=== PATIENT | female | born 1990 | race Caucasian/White ===

== ENCOUNTER 2025-02-26 07:45 | Outpatient (RCR) | payer BC, SELFPAY | END 2025-06-20 08:15 | disposition home or self-care (01) | PROVIDERS: PCP Family Medicine; Visit Provider Family Medicine | DX: N81.11 Cystocele, midline (principal); M62.89 Other specified disorders of muscle; R15.0 Incomplete defecation; N39.3 Stress incontinence (female) (male); R39.16 Straining to void; M79.605 Pain in left leg; Z51.89 Encounter for other specified aftercare | CPT/HCPCS: 97110; 97112; 97161; 97535 ==